=== PATIENT | female | born 1985 | race African-American/Black ===

== ENCOUNTER 2022-01-03 08:00 | Outpatient (RCR) | payer MEDICAID, SELFPAY ==
--- NOTE | 2022-01-03 09:05 | BH.SGPN.GN ---
Behaviors/Verbalizations/Mental Status: [] Eye contact is good. Motor activity is appropriate. Appearance is casual. Speech is WNL. Mood is anxious. Affect is congruent. Thoughts are linear and logical. No evidence of psychosis. Reviewed daily check in sheet and no reports of suicidal ideations or intent. Client Response/Progress/Benefit: [] Pt participated when prompted. Attnetive. Shared with the group that today was her first day in IOP level of care. I need this program ... I need to function with my anxiety and anger. She also discussed the need to regulate her emotions to improve her overall quality of life and relationships. She mentioned significant social anxiety which has her isolating more. Group welcomed her to the program and provided feedback and suggestions for her first day and week which was beneficial. nO PROGRESS NOTED. Will continue in IOP to stabilize mood, increase healthy coping, and prevent decompensation. Narrative Note: []
--- NOTE | 2022-01-03 10:10 | BH.SGPN.GN ---
Behaviors/Verbalizations/Mental Status: []Pt alert and oriented, neatly dressed and groomed. Eye contact good. Motor activity appropriate. Speech within normal limits. Affect congruent, mood anxious. Thoughts linear, logical, no signs of hallucinations or delusions. Client Response/Progress/Benefit: []Pt was an engaged participant AEB pt listening attentively to others. Attentive during psychoeducation on communication styles. Assisted group with identifying barriers of effective communication which included: ?dropping hints,? texting, assumptions, yelling, and hurtful language. Pt identified they most often use passive-aggressive and aggressive communication. Pt reports being aggressive and passive-aggressive impacts pt by causing more conflict and negative thinking. Benefited from increased awareness of different communication barriers, styles, and the importance of communicating effectively to improve mental wellness. Will continue IOP tx to reduce anger, increase distress tolerance skills, and reduce suicidal ideations. Narrative Note: []
--- NOTE | 2022-01-04 09:05 | BH.SGPN.GN ---
Behaviors/Verbalizations/Mental Status: [] Eye contact is good. Motor activity is appropriate. Appearance is casual. Speech is Appropriate. Mood is anxious. Affect is full. Thoughts are linear and logical. No evidence of psychosis. Reviewed daily check in sheet and no reports of suicidal ideations or intent. Client Response/Progress/Benefit: [] Pt was an active participant in group discussion on anger mgmt. Attentive. Emotion for today is anxious. Daily symptom tracker notes 08/13 for depression. [facility] was making it here today . Shared that her 1 y/o has significant separation anxiety and often cries for hours when she leaves. Talked about how this impacts her mentally and socially. Often has guilt if she leaves. She is unsure what to do to remedy this. Group provided some suggestions and encouraged her to discuss with child's management information systems director. Shared that she went to couple's counseling yesterday with and she is excited to begin to work on communication with her . She then talked about how her irritability and anger impact her mental health, her relationships, and her overall functioning. I go from zero to hundred quickly. Reports that small things will upset her and she can ruminate on them the entire day. Group provided feedback and suggestion for thought reframing and anger mgmt which was benefical. No progress noted per pt report. Will continue in IOP to stablize mood, increase healthy coping, and prevent decompensation. Narrative Note: []
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
--- NOTE | 2022-01-04 11:15 | BH.SGPN.GN ---
Behaviors/Verbalizations/Mental Status: []Pt alert and oriented, neatly dressed and groomed. Eye contact good. Motor activity appropriate. Speech within normal limits. Affect constricted, mood irritable and dysthymic. Thoughts linear, logical, no signs of hallucinations or delusions. Client Response/Progress/Benefit: []Pt responded well to session, engaged in the experiential activity and attentive throughout group processing. Pt reported fear of failure has kept pt from completing school and starting new things. Pt completed fear of failure worksheet and was able to identify thoughts and behaviors that reinforce personal fear of failure including negative thinking, fear of success, and not giving things my all. Pt participated in small group discussion regarding strategies to overcome fear of failure. Identified wanting to work on giving self credit for the things she is accomplishing. Appeared to benefit from increased knowledge of strategies to combat fear of failure and gaining self-awareness. Pt will continue IOP tx to prevent decompensation, gain healthy coping skills, and maintain safety. Narrative Note: []
[2022-01-04 11:36] VITALS: BP 142/85; PULSE 96
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
--- NOTE | 2022-01-04 12:44 | BH.DR.ITP ---
Initial Treatment Plan Patient Information Visit Information: ADMISSION DATE: EXPECTED LOS: 4-6 weeks Problems/Symptoms Problem #1:: Mood instability with depression with depression Symptom:: Sadness, irritability, anger, racing thoughts, anhedonia, biological disruption of sleep, low energy, decreased concentration, passive suicidal ideation, passive thoughts of Problem #2:: Anxiety Symptom:: Worry, nightmares, avoidance, flashbacks, reexperiencing
--- NOTE | 2022-01-06 10:00 | BH.COMM ---
Communication Note - Communication with Client Communication Note: No call/ No show for IOP
--- NOTE | 2022-01-10 10:00 | BH.COMM ---
Communication Note - Communication with Client Communication Note: no call/ no show for IOP
--- NOTE | 2022-01-11 14:00 | BH.COMM ---
Communication Note - Communication with Client Communication Note: Pt did not show for IOP today. Left a message with staff stating indicating that perhaps she was not in the right place to continue with IOP. Staff called back and left another message to discuss. Pt returned that phone call with message again stating that following through with IOP at this point in time would be unlikely. She had indicated this on two occasions and it was decided to discharge as pt had voiced obstacles to attending consistently and had missed the last 3 IOP sessions scheduled.
--- NOTE | 2022-01-12 11:47 | BH.COMM ---
Communication Note - Communication with Client Communication Note: Informed by staff that pt had arrived to group around 930am. She was informed that she had been discharged (refer to comm. note from yesterday) and would need to get re-admitted (Currently all clinical staff was with patients so we were unable to re-admit at that moment). Pt was upset and left. This therapist reached out to patient via phone to discuss as we could easily re-admit if she had changed her mind about attending IOP. Left VM.
== END 2022-01-05 23:59 ==
LOC: BHIOP 08:00
PROVIDERS: Referring Provider Psychiatry & Neurology Psychiatry; Visit Provider Psychiatry & Neurology Psychiatry
DX: F31.9 Bipolar disorder, unspecified (principal); F43.10 Post-traumatic stress disorder, unspecified; F60.3 Borderline personality disorder; Z79.899 Other long term (current) drug therapy; E66.9 Obesity, unspecified; F17.210 Nicotine dependence, cigarettes, uncomplicated; Z62.810 Personal history of physical and sexual abuse in childhood; Z62.811 Personal history of psychological abuse in childhood; Z91.51 Personal history of suicidal behavior; Z91.52 Personal history of nonsuicidal self-harm
CPT/HCPCS: 90792; H2012; T1002

== ENCOUNTER 2022-01-16 08:00 | Outpatient (RCR) | payer MEDICAID, SELFPAY ==
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
--- NOTE | 2022-01-18 09:50 | BH.COMM ---
Communication Note - Communication with Client Communication Note: Met with client this AM- BP 144/96 HR 100. Discussed with client need for PCP and client given a printed list of local providers that are accepting patients and take her insurance. See nursing assessment from 01/04/22- client denies changes in medical history/medications since that date.
--- NOTE | 2022-01-18 10:05 | BH.SGPN.GN ---
Behaviors/Verbalizations/Mental Status: []Client alert and oriented, casually dressed and groomed. Eye contact good. Motor activity appropriate. Speech within normal limits. Affect constricted, mood irritable. Thoughts linear, logical, no signs of hallucinations or delusions. Client Response/Progress/Benefit: []Client was an active participant in activity and taking notes during group discussion. Attentive during psychoeducation on coping skills, why people use unhealthy coping skills, and how to replace unhealthy coping skills. Benefited from increased understanding of unhealthy coping skills and the need for developing healthy internal and external coping skills. Client did not share input to group with mainly taking notes. Client will continue IOP tx to prevent decompensation, increase positive self-image, and increase overall functioning. Narrative Note: []
--- NOTE | 2022-01-18 12:19 | PCM.BH.PN_ITS ---
Progress Note Progress Note: Update: Refer to Initial Psychiatric Evaluation from 01/04/22 for complete history. History of Present Illness/Interim History: [] The patient is a 36-year-old -Indian female with a history of bipolar disorder, PTSD and borderline personality disorder who was admitted into the [facility] behavioral health IOP program in December 2021. I last saw the patient 2 weeks ago on January 04, 2022. Due to miscommunication the patient was discharged from the IOP program about 1 week ago and is now resuming the IOP program. Please refer to the initial psychiatric evaluation for further information. The patient states that she is doing about the same as she was when I saw her last. She is getting better sleep now on the medications and her sleep has improved to 6 or 7 hours a night since the clonidine and Abilify were restarted 2 weeks ago. She is taking the meds as prescribed and is tolerating them well. She remains depressed and remains easily triggered with severe PTSD symptoms as described in the initial evaluation. She denies any recent self-harm. She remains irritable with crying episodes and occasional anger outbursts. She has racing thoughts, is isolating herself and would prefer to stay in bed a lot when she can. She admits to hopelessness but denies worthlessness or guilt. She describes some recent depersonalization episodes where she feels like she is watching myself from outside of my body. She does not dissociate during these episodes she denies passive thoughts of and denies any suicidal ideation. Energy level is okay now but concentration remains decreased. She also denies active suicidal ideation, plan for suicide, homicidal ideation, hallucinations or delusions or symptoms of janeen. Current Psychiatric Medications: [] Abilify 10 mg p.o. nightly (restarted 2 weeks ago); clonidine 0.1 mg p.o. nightly (restarted several 2 weeks ago). Mental Status Examination: [] The patient is an overweight -Indian female who appears normal for stated age and is casually dressed and groomed with good hygiene. She has tattoos on her right arm and left arm and neck. She is ambulatory with a normal gait and has no psychomotor agitation or retardation. Speech is normal rate and rhythm and fluent with no pressure. Eye contact is good. Mood is depressed. Affect is constricted. Thought process is goal-directed and organized. Thought content: There is no evidence of passive thoughts of , suicidal ideation, plan for suicide, homicidal ideation, hallucinations, delusions or symptoms of janeen. Reality testing is intact. Intelligence is average. Judgment is intact. Insight: Limited but some present. Impulsivity high. Labs and testing: The patient's labs were reviewed that she had done 2 weeks ago and her thyroid labs were all normal including TSH and free thyroxine index but her vitamin D level was low. These were reviewed with the patient. Diagnoses: [] 1. Bipolar, NOS 2. PTSD 3. Borderline personality disorder 4. Generalized anxiety disorder 5. Primary support and work issues Plan: [] The patient will restart the IOP program in behavioral health at [facility] as the structure, support, education and group therapy will hopefully prevent worsening of the patient's symptoms that could require admission to the hospital. She felt safe during the interview and if it anytime she does not feel safe she will let us know or go to the emergency room. The risks, options, possible complications and side effects of the medications were again discussed with the patient and she understands and accepts these. She agrees to restart the IM Abilify after she finishes the IOP program. She will continue the medication she was restarted on 2 weeks ago at the current doses and no medication changes were made today. A prescription was sent in for vitamin D 2, 50,000 units, 1 p.o. once a week for 12 weeks. She will continue to follow-up with her outpatient providers and I will see the patient in follow-up in several weeks.
--- NOTE | 2022-01-18 12:27 | BH.DR.ITP ---
Initial Treatment Plan Patient Information Visit Information: ADMISSION DATE: EXPECTED LOS: 4-6 weeks Problems/Symptoms Problem #1:: Mood instability with depression Symptom:: Sadness, irritability, anger, racing thoughts, low energy, decreased concentration, recent passive suicidal ideation and recent passive thoughts of Problem #2:: Anxiety Symptom:: Worry, nightmares, avoidance, flashbacks, reexperiencing, depersonalization
--- NOTE | 2022-01-23 09:36 | BH.COMM ---
Communication Note - Communication with Client Communication Note: no call/ no show
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
--- NOTE | 2022-01-24 10:10 | BH.SGPN.GN ---
Behaviors/Verbalizations/Mental Status: [] Eye contact is good. Motor activity is appropriate. Appearance is casual. Speech is Appropriate. Mood is anxious and irritable. Affect is congruent. Thoughts are linear and logical. No evidence of psychosis. Client Response/Progress/Benefit: [] Client responded well to session AEB sharing when prompted and listening attentively to others. Client participated in group discussion defining boundaries and why having healthy boundaries is important. Client appeared to connect to psychoeducation on types of boundaries, including physical, emotional, and intellectual. Client listened attentively and nodding throughout discussion in which group members shared personal examples of different types of boundaries. Client stated how when others do not respect her boundaries she will get angry and make sure her boundaries are heard. Client appeared to benefit from increased knowledge of the types of boundaries and increased self-awareness of personal boundaries. Will continue IOP treatment to increase depression management skills, increase self compassion, and use independent coping skills to improve daily functioning. Narrative Note: []
--- NOTE | 2022-01-24 11:15 | BH.SGPN.GN ---
Behaviors/Verbalizations/Mental Status: [] Client alert and oriented, casually dressed and appropriately groomed. Eye contact good. Motor activity appropriate.? Speech within normal limits. Affect congruent, mood anxious and irritable. Thoughts linear and intact. no signs of delusions or hallucinations. Client Response/Progress/Benefit: [] Client responded well to session AEB listening attentively to peers, providing input, as well as taking notes throughout. Client contributed throughout psychoeducation on different boundary setting styles and processing with group results of continuum. Client discussed how she doesn't ask for help from others and is do it all herself type of person. client said this causes her to be very overwhelmed at times and leaves her without getting her needs met. Group provided with [place] setting tips and homework to practice one new boundary setting skill. Seemed to benefit from increased awareness of how different boundary styles can impact mental health. Will continue IOP tx to increase consistent application of skills, increase self-care, and prevent decompensation. Narrative Note: []
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
--- NOTE | 2022-01-25 10:15 | BH.SGPN.GN ---
Behaviors/Verbalizations/Mental Status: []Pt alert and oriented, neatly dressed and groomed. Eye contact good. Motor activity restless. Speech within normal limits. Affect constricted, mood anxious/agitated. Thoughts linear, logical, no signs of hallucinations or delusions. Client Response/Progress/Benefit: []Pt responded well to session AEB sharing and listening attentively to others. Pt participated in group discussion defining taking action and sharing getting help as a personal example. Group identified barriers to taking action, with examples of settling and not wanting to feel uncomfortable. 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 Pt identified isolation, reacting before thinking, and settling because of fear of the unknown as driving their ?bus? most often.? Pt shared if they could gain control over these things pt would be more less irritable and more connected to people. Appeared to benefit from increased self-awareness and knowledge regarding examples and barriers to taking action. Will continue IOP tx to prevent decompensation, improve distress tolerance skills, and improve functioning. Narrative Note: []
--- NOTE | 2022-01-26 09:37 | BH.COMM ---
Communication Note - Communication with Client Communication Note: no call/ no show
--- NOTE | 2022-01-31 09:35 | BH.COMM ---
Communication Note - Communication with Client Communication Note: No call/ No show for IOP today.
--- NOTE | 2022-02-01 14:37 | BH.COMM_ITS ---
Communication Note - Communication with Client Communication Note: Client no show/no call today. This is client's 3rd no show in a row. This senior writer left voicemail for client that if she does not return phone call by tomorrow afternoon she will be discharged from [facility] due to lack of attendance.
--- NOTE | 2022-02-01 14:37 | BH.COMM ---
Communication Note - Communication with Client Communication Note: Client no show/no call today. This is client's 3rd no show in a row. This music writer left voicemail for client that if she does not return phone call by tomorrow afternoon she will be discharged from [facility] due to lack of attendance.
== END 2022-02-02 14:38 | disposition home or self-care (01) ==
LOC: BHIOP 08:00
PROVIDERS: Referring Provider Psychiatry & Neurology Psychiatry; Visit Provider Psychiatry & Neurology Psychiatry
DX: F31.9 Bipolar disorder, unspecified (principal); F43.10 Post-traumatic stress disorder, unspecified; F41.1 Generalized anxiety disorder; Z79.899 Other long term (current) drug therapy; F60.3 Borderline personality disorder
CPT/HCPCS: 99214; H2012; H2020; S9480; 90834; 90837

== ENCOUNTER 2022-01-16 10:55 | Outpatient (CLI) | payer MEDICAID, SELFPAY ==
[2022-01-16 12:15] LABS: T4 Total, Thyroxin 10.2 ug/dL (4.8-13.9)
[2022-01-16 17:05] LABS: T4 Free Direct 0.94 ng/dL (0.76-1.46)
== END 2022-01-16 23:59 | disposition home or self-care (01) ==
PROVIDERS: Referring Provider Psychiatry & Neurology Psychiatry; Visit Provider Psychiatry & Neurology Psychiatry
DX: E55.9 Vitamin D deficiency, unspecified (principal); F31.9 Bipolar disorder, unspecified; F60.3 Borderline personality disorder; F43.10 Post-traumatic stress disorder, unspecified; F41.1 Generalized anxiety disorder; Z79.899 Other long term (current) drug therapy
CPT/HCPCS: 84481; 36415; 82306; 84436; 84439; 84443; S9480; 90837

== ENCOUNTER 2022-08-03 01:00 | Emergency (ER) | payer MEDICAID, SELFPAY ==
[2022-08-03 01:01] VITALS: BP 122/85; PULSE 111; RESP 18; TEMP 36.4; O2SAT 99; BMI 38.3
--- NOTE | 2022-08-03 01:17 | EDS_ITS ---
HPI History of Present Illness Chief Complaint: Upper Extremity Injury Informant: patient Onset/Context/Timing Onset: Yesterday Context: Gradual Onset Timing: Continuous Quality of Pain: - (sore) Location: left wrist Current Severity: Severe Maximum Severity: Severe Worsened by: palpation, moving affected area Relieved by: nothing; no treatments attempted Associated Symptoms Associated Symptoms: Negative for Parasthesia or Weakness Narrative Narrative: 36-year-old female with spontaneous onset of a tender swollen area on the radial aspect of her left wrist. No injury. No systemic symptoms or fevers. Never had this before. No history of MRSA abscesses that she knows of. [facility] Medical History Bipolar disorder, unspecified Borderline personality disorder Generalized anxiety disorder PTSD (post-traumatic stress disorder) Home Medications aripiprazole 10 mg tablet (Abilify) 10 mg PO QHS 30 days #30 tabs 01/04/22 [Rx Last Taken Unknown] clonidine HCl 0.1 mg tablet 0.1 mg PO QHS 30 days #30 tabs 01/18/22 [Rx Last Taken Unknown] ergocalciferol (vitamin D2) 1,250 mcg (50,000 unit) capsule (Vitamin D2) 1,250 mcg PO QWEEK 3 months #13 caps 01/18/22 [Rx Last Taken Unknown] sulfamethoxazole 800 mg-trimethoprim 160 mg tablet 1 tab PO BID #20 TABLETS 08/03/22 [Rx Last Taken Unknown] Allergy/AdvReac Type Severity Reaction Status Date / Time No Known Allergies Allergy Verified 08/03/22 01:05 Surgical History History of delivery Social History Smoking Status: Current every day smoker tobacco type: cigarettes ROS ROS ED Constitutional Constitutional ED: Denies chills or fever(s) Musculoskeletal Musculoskeletal: Reports extremity pain; Denies neck pain Integumentary Reports abscess; Denies Abrasions, rash or wounds Neurologic Neurologic: Denies paresthesias or weakness EXAM Physical Exam Const Vital Signs: 08/03/22 01:01 Temperature 97.6 F L Temperature Source Temporal Pulse Rate 111 H Respiratory Rate 18 Blood Pressure 122/85 H Blood Pressure Mean 97 Pulse Ox 99 Oxygen Delivery Method Room Air Positive well nourished and well developed General Appearance ED: well developed and NAD Neck full ROM and supple Back/Spine normal ROM and normal to inspection Extremity Extremity Narrative: See skin exam. There is erythema surrounding a palpable small subcutaneous nodule at the volar radial aspect of the left wrist. The rest of the wrist is normal-appearing, there is no effusion, generalized erythema/warmth, she has limited range of motion due to pain, she is able to pronate and supinate without apparent difficulty and move her fingers without any difficulty. Neuro oriented x3, no focal motor deficits and no sensory deficits noted Sensorium / Orientation: alert Psych mental status grossly normal and thought process normal Skin Skin Narrative: Small mobile subcutaneous abscess back of the left wrist. Overlying erythema and tenderness mild warmth. No lymphangitis. It is not pointing at the skin, there is no overlying pustule bulla or other skin abnormality. Rashes: no rashes MDM MDM MDM Narrative Medical decision making narrative: The appears to be an early MRSA abscess. There is a subcutaneous nodule, and since I can feel a nodule here, I think it is probably an abscess and not just cellulitis but there is some surrounding cellulitis. My recommendation is attempting needle aspiration, with or without lidocaine although the patient did not allow me to even discuss this part because she said she did not want me trying to I&D something that I could not guarantee would yield purulent material. Certainly I am not able to guarantee this because it is very small right now. I offered her antibiotics, which she initially agreed to. She had no allergies to antibiotics so I ordered her a dose of Bactrim here as well as a prescription for 10 days worth, and discussed at length with the patient that this is more likely to be an abscess than a ganglion cyst or any joint process because of the exam, and yes these can occur spontaneously and people have never had them before such as her. She was very doubtful about my clinical diagnosis. She did not want attempted aspiration or anything with needles, and initially was amenable to antibiotics. However she left prior to discharge, and prior to getting any antibiotic pill even though it was ordered, telling staff I am looking for a second opinion. Disposition: Left prior to discharge Discharge Plan Triage Chief Complaint: Upper Extremity Injury ED Provider: Renan Gonzales Dx/Rx/DC Orders Clinical Impression: Abscess of skin of left wrist Instructions: ED Abscess Antibiotic Treatment Only Prescriptions: New sulfamethoxazole-trimethoprim [sulfamethoxazole-trimethoprim] 800-160 mg tablet 1 tab PO BID Qty: 20 0RF No Action aripiprazole [Abilify] 10 mg tablet 10 mg PO QHS 30 Days Qty: 30 1RF ergocalciferol (vitamin D2) [Vitamin D2] 1,250 mcg (50,000 unit) capsule 1,250 mcg PO QWEEK 90 Days Qty: 13 0RF clonidine HCl 0.1 mg tablet 0.1 mg PO QHS 30 Days Qty: 30 1RF Referrals: Doctor,Your [Non-Staff] - 1 Week if not improving (may return to ER if worsening/enlarging despite antibiotics, which is common in first 48 hrs even with antibiotics on board) Disposition Disposition: Home, Self Care
--- NOTE | 2022-08-03 01:22 | ED.RN ---
Before d/c, pt walked out of room and stated that she was going to leave. This RN explained to pt that this RN had d/c paperwork and antibiotic therapy for her. Pt stated, I don't want it. I'll come back when there's a better doctor.
== END 2022-08-03 01:33 | disposition home or self-care (01) ==
LOC: ED 01:28
PROVIDERS: Emergency Provider Emergency Medicine; Visit Provider Emergency Medicine
DX: L02.414 Cutaneous abscess of left upper limb (principal); F31.9 Bipolar disorder, unspecified; F60.3 Borderline personality disorder; Z79.899 Other long term (current) drug therapy; F41.1 Generalized anxiety disorder; F17.210 Nicotine dependence, cigarettes, uncomplicated
CPT/HCPCS: 99282